=== PATIENT | male | born 1940 | race Caucasian/White ===

== ENCOUNTER 2017-10-09 12:16 | Day surgery (SDC) | payer MEDICARE ==
[~2017-10-09] VITALS: Ht 170.2 cm; Wt 92.2 kg
[~2017-10-09 12:16] MED LIST: AMLO10 PO; ASPI325 PO; ASPI325EC PO; CETI10 PO; CLOP75 PO; CYCL10 PO; FENO145 PO; FISH1000 PO; FLUT.05NI; FURO40 PO; GABA300 PO; HYDCHL25 PO; LISI20 PO; MELO7.5 PO; METF500 PO; METF500C PO; METF850 PO; METO50 PO; NEBI10 PO; NITR.4SL SL; NYSTRITC TOP; OLME20 PO; OMEP20ER PO; OMEPRAZOLE MAGN20 MG PO; PROACE100 PO; ROSU10TA PO; TAMS.4ER PO; TRAACE PO; VERA240ER PO
[2017-10-09] MEDS ORDERED: XARELTO20 MG (13:01)
[2017-10-09] MEDS ORDERED: XARELTO20 MG PO (13:02)
== END 2017-10-09 14:34 | disposition home or self-care (01) ==
LOC: ORSCSDS 12:16
PROVIDERS: Internal Medicine Gastroenterology
PROC: 0DBH8ZX Excision of Cecum, Via Natural or Artificial Opening Endoscopic, Diagnostic (ICD-10-PCS; principal; 2017-10-09 13:30)
PROC: 0DBK8ZX Excision of Ascending Colon, Via Natural or Artificial Opening Endoscopic, Diagnostic (ICD-10-PCS; principal; 2017-10-09 13:30)
PROC: 0W3P8ZZ Control Bleeding in Gastrointestinal Tract, Via Natural or Artificial Opening Endoscopic (ICD-10-PCS; principal; 2017-10-09 13:30)
DX: Z12.11 Encounter for screening for malignant neoplasm of colon (principal); D12.0 Benign neoplasm of cecum; D12.2 Benign neoplasm of ascending colon; Q27.33 Arteriovenous malformation of digestive system vessel; K57.30 Diverticulosis of large intestine without perforation or abscess without bleeding; K64.8 Other hemorrhoids; I25.10 Atherosclerotic heart disease of native coronary artery without angina pectoris; I10 Essential (primary) hypertension; G47.33 Obstructive sleep apnea (adult) (pediatric); K21.9 Gastro-esophageal reflux disease without esophagitis; E11.9 Type 2 diabetes mellitus without complications; Z79.899 Other long term (current) drug therapy; Z79.82 Long term (current) use of aspirin
CPT/HCPCS: 82947; 88305; J2250; J7120

== ENCOUNTER 2017-12-10 10:37 | Observation (INO) | payer MEDICARE ==
[~2017-12-10] VITALS: Ht 170.2 cm; Wt 91.5 kg
[~2017-12-10 10:37] MED LIST changes: +XARELTO20 MG; +XARELTO20 MG PO
[2017-12-10 12:02] LABS: BASOPHILS ABSOLUTE AUTO 0.05 K/mm3 (0.00-0.23); BASOPHILS PERCENT AUTO 1 % (0-2); EOSINOPHILS PERCENT AUTO 3 % (0-6); Hematocrit 38.8 % (37.0-53.0); Hemoglobin 12.7 g/dL (13.5-17.5); IMMATURE GRAN ABSOLUTE AUTO 0.06 K/mm3 (0.00-0.10); IMMATURE GRAN PERCENT AUTO 1 % (0-1); LYMPHOCYTES ABSOLUTE AUTO 2.09 K/mm3 (0.84-5.20); LYMPHOCYTES PERCENT AUTO 29 % (21-46); MONOCYTES ABSOLUTE AUTO 0.77 K/mm3 (0.16-1.47); MONOCYTES PERCENT AUTO 11 % (4-13); Mean Corpuscular HGB 27.5 pg (26.0-34.0); Mean Corpuscular HGB Conc 32.7 g/dL (31.5-36.5); Mean Corpuscular Volume 84 fL (80-100); Mean Platelet Volume 11.6 fL (9.1-12.4); NEUTROPHILS ABSOLUTE AUTO 4.13 K/mm3 (1.96-9.15); NEUTROPHILS PERCENT AUTO 57 % (41-73); Platelet Count 193 K/mm3 (150-400); RDW Coefficient Variation 15.1 % (11.7-14.2); RDW Standard Deviation 45.9 fL (35.1-46.3); Red Blood Cell Count 4.62 M/mm3 (4.30-5.90)
[2017-12-10 12:15] LABS: Alanine Aminotransfer (ALT/SGP 24 U/L (12-78); Albumin, Blood 3.6 g/dL (3.4-5.0); Albumin/Globulin Ratio 0.9 (0.8-1.8); Alk Phos 51 U/L (50-136); Anion Gap 11 mmol/L (6-16); Aspartate Aminotrans (AST/SGOT 12 U/L (12-37); Bilirubin, Total 0.6 mg/dL (0.1-1.0); Blood Urea Nitrogen 14 mg/dL (8-24); Bun/Creatinine Ratio 11.4 (12.0-20.0); CO2, Blood 23 mmol/L (21-32); Calcium, Blood 8.7 mg/dL (8.5-10.1); Chloride, Blood 106 mmol/L (98-108); Creatinine, Blood 1.23 mg/dL (0.60-1.20); Globulin, Blood 3.8 g/dL (2.2-4.0); Glomerular Filtration Rate >60 (60-); Glucose, Blood 161 mg/dL (70-99); Potassium, Blood 3.8 mmol/L (3.5-5.5); Sodium, Blood 140 mmol/L (136-145); Total Protein, Blood 7.4 g/dL (6.4-8.2); Troponin I <0.015 ng/mL (0.000-0.040)
[2017-12-13] MEDS ORDERED: NITR.4SL SL (15:19)
[2017-12-13] MEDS ORDERED: Micro-K10 MEQ PO (15:22)
[2017-12-13] MEDS ORDERED: METO50ER PO (15:32)
[2017-12-13] MEDS ORDERED: ASPI81CH PO (15:34)
[2017-12-13] MEDS ORDERED: AMLO5 PO (15:36)
== END 2017-12-13 16:40 | disposition home or self-care (01) ==
LOC: ER 10:37 → PCU 10:38 → MEDS 14:01 → ER 14:01 → PCU 14:01 → MEDS 14:55 → PCU 16:25 → MEDS 16:25 → PCU 16:25
PROVIDERS: Emergency Medicine
DX: R07.89 Other chest pain (principal); I48.2 Chronic atrial fibrillation; I25.10 Atherosclerotic heart disease of native coronary artery without angina pectoris; E78.5 Hyperlipidemia, unspecified; I12.9 Hypertensive chronic kidney disease with stage 1 through stage 4 chronic kidney disease, or unspecified chronic kidney disease; E11.22 Type 2 diabetes mellitus with diabetic chronic kidney disease; N18.9 Chronic kidney disease, unspecified; M19.90 Unspecified osteoarthritis, unspecified site; G47.33 Obstructive sleep apnea (adult) (pediatric); M51.36 Other intervertebral disc degeneration, lumbar region; R55 Syncope and collapse; Z79.01 Long term (current) use of anticoagulants; Z95.1 Presence of aortocoronary bypass graft; Z95.5 Presence of coronary angioplasty implant and graft; Z88.5 Allergy status to narcotic agent; Z79.82 Long term (current) use of aspirin; Z79.899 Other long term (current) drug therapy; Z99.89 Dependence on other enabling machines and devices
CPT/HCPCS: 36415; 78452; 80053; 84484; 85025; 93005; 93010; 93017; 99285; A9500; J0280; J1160; J2785; J7030

== ENCOUNTER → 2018-08-21 | Outpatient (CLI) | payer MEDICARE ==
[~2018-08-21] MED LIST changes: +AMLO5 PO; +ASPI81CH PO; +METO50ER PO; +Micro-K10 MEQ PO
== END | disposition home or self-care (01) ==
LOC: LAB EV 15:08 → LAB SHORT 15:08
DX: E11.40 Type 2 diabetes mellitus with diabetic neuropathy, unspecified (principal)
CPT/HCPCS: 82607; 82746

== ENCOUNTER 2019-04-10 07:08 | Emergency (ER) | payer MEDICARE ==
[~2019-04-10] VITALS: Ht 170.2 cm; Wt 86.2 kg
== END 2019-04-10 08:54 | disposition home or self-care (01) ==
LOC: ER 07:08
DX: S93.402A Sprain of unspecified ligament of left ankle, initial encounter (principal); E11.9 Type 2 diabetes mellitus without complications; I25.10 Atherosclerotic heart disease of native coronary artery without angina pectoris; I10 Essential (primary) hypertension; E78.5 Hyperlipidemia, unspecified; N40.0 Benign prostatic hyperplasia without lower urinary tract symptoms; G47.33 Obstructive sleep apnea (adult) (pediatric); Z88.5 Allergy status to narcotic agent; Z88.6 Allergy status to analgesic agent; Z79.82 Long term (current) use of aspirin; Z79.899 Other long term (current) drug therapy; Z87.891 Personal history of nicotine dependence; W10.1XXA Fall (on)(from) sidewalk curb, initial encounter
CPT/HCPCS: 73610; 96372; 99283-25; J1170

== ENCOUNTER 2019-05-21 18:39 | Emergency (ER) | payer MEDICARE ==
[~2019-05-21] VITALS: Ht 170.2 cm; Wt 86.2 kg
[2019-05-21] MEDS ORDERED: Norco 5-325 Ta1 EACH PO (21:03)
== END 2019-05-21 21:24 | disposition home or self-care (01) ==
LOC: ER 18:39
DX: S93.402A Sprain of unspecified ligament of left ankle, initial encounter (principal); E11.9 Type 2 diabetes mellitus without complications; I10 Essential (primary) hypertension; I25.10 Atherosclerotic heart disease of native coronary artery without angina pectoris; Z87.442 Personal history of urinary calculi; Z87.891 Personal history of nicotine dependence; Z88.5 Allergy status to narcotic agent; Z79.899 Other long term (current) drug therapy; Z79.01 Long term (current) use of anticoagulants; Z79.82 Long term (current) use of aspirin; W22.8XXA Striking against or struck by other objects, initial encounter
CPT/HCPCS: 29505; 73610; 99283-25; A9270-GY

== ENCOUNTER → 2019-07-22 | Outpatient (CLI) | payer MEDICARE ==
[~2019-07-22] MED LIST changes: +Norco 5-325 Ta1 EACH PO
[2019-07-22 12:17] LABS: BASOPHILS ABSOLUTE AUTO 0.04 K/mm3 (0.00-0.23); BASOPHILS PERCENT AUTO 1 % (0-2); EOSINOPHILS ABSOLUTE AUTO 0.29 K/mm3 (0.00-0.68); EOSINOPHILS PERCENT AUTO 5 % (0-6); Hematocrit 33.7 % (37.0-53.0); Hemoglobin 10.1 g/dL (13.5-17.5); IMMATURE GRAN ABSOLUTE AUTO 0.03 K/mm3 (0.00-0.10); IMMATURE GRAN PERCENT AUTO 1 % (0-1); LYMPHOCYTES ABSOLUTE AUTO 1.38 K/mm3 (0.84-5.20); LYMPHOCYTES PERCENT AUTO 25 % (21-46); MONOCYTES ABSOLUTE AUTO 0.54 K/mm3 (0.16-1.47); MONOCYTES PERCENT AUTO 10 % (4-13); Mean Corpuscular HGB 25.2 pg (26.0-34.0); Mean Corpuscular Volume 84 fL (80-100); Mean Platelet Volume 10.1 fL (9.1-12.4); NEUTROPHILS ABSOLUTE AUTO 3.29 K/mm3 (1.96-9.15); NEUTROPHILS PERCENT AUTO 59 % (41-73); Platelet Count 207 K/mm3 (150-400); RDW Coefficient Variation 21.3 % (11.7-14.2); RDW Standard Deviation 62.2 fL (35.1-46.3); Red Blood Cell Count 4.01 M/mm3 (4.30-5.90); White Blood Cell Count 5.57 K/mm3 (4.00-11.30)
[2019-07-22 12:21] LABS: Calcium, Blood 8.8 mg/dL (8.5-10.1); Creatinine, Blood 1.2 mg/dL (0.60-1.20); Potassium, Blood 4.3 mmol/L (3.5-5.5)
== END | disposition home or self-care (01) ==
LOC: LAB EV 12:12 → LAB SHORT 12:12
PROVIDERS: Family Medicine
DX: D50.9 Iron deficiency anemia, unspecified (principal)
CPT/HCPCS: 80048; 85025

== ENCOUNTER → 2019-08-27 | Outpatient (CLI) | payer MEDICARE ==
[2019-08-29 09:46] LABS: Stool Occult Bld Immuno 1 Positive (NEGATIVE); Stool Occult Bld Immuno 2 Positive (NEGATIVE)
== END | disposition home or self-care (01) ==
LOC: LAB EV 16:30
PROVIDERS: Internal Medicine Gastroenterology
DX: D50.9 Iron deficiency anemia, unspecified (principal)
CPT/HCPCS: 82274

== ENCOUNTER 2020-01-27 10:51 | Day surgery (SDC) | payer MEDICARE ==
[~2020-01-27] VITALS: Ht 170.2 cm; Wt 87.7 kg
[~2020-01-27 10:51] MED LIST changes: +Amlodipine Bes2.5 MG PO; +Aspir 8181 MG PO; +Benicar40 MG PO; +Crestor20 MG PO; +Flonase 0.05% N16 GM; +METO100ER PO; +NYSTRITC; +TRAMADOL-ACETAMINOPH PO; +ZYRTEC10 M1 PO
== END 2020-01-27 13:31 | disposition home or self-care (01) ==
LOC: ORSCSDS 10:51
PROVIDERS: Internal Medicine Gastroenterology
PROC: 0DB68ZX Excision of Stomach, Via Natural or Artificial Opening Endoscopic, Diagnostic (ICD-10-PCS; principal; 2020-01-27 12:45)
PROC: 0DB98ZX Excision of Duodenum, Via Natural or Artificial Opening Endoscopic, Diagnostic (ICD-10-PCS; principal; 2020-01-27 12:45)
DX: R19.5 Other fecal abnormalities (principal); D50.9 Iron deficiency anemia, unspecified; G47.33 Obstructive sleep apnea (adult) (pediatric); I48.91 Unspecified atrial fibrillation; I25.10 Atherosclerotic heart disease of native coronary artery without angina pectoris; I10 Essential (primary) hypertension; I25.2 Old myocardial infarction; G47.30 Sleep apnea, unspecified; E11.9 Type 2 diabetes mellitus without complications; E66.9 Obesity, unspecified; Z68.30 Body mass index [BMI] 30.0-30.9, adult; Z79.01 Long term (current) use of anticoagulants; Z87.891 Personal history of nicotine dependence; Z79.82 Long term (current) use of aspirin; Z79.899 Other long term (current) drug therapy
CPT/HCPCS: 82947; 88305; 88342; J2704; J7120

== ENCOUNTER → 2020-11-29 | Outpatient (CLI) | payer MEDICARE ==
[~2020-11-29] MED LIST changes: +AZIT500 PO; +CEFP200 PO; -Flonase 0.05% N16 GM; +NYSTATIN-TRIAMC15 GM TOP; -NYSTRITC
== END | disposition home or self-care (01) ==
LOC: PLD 07:56 → LAB SHORT 07:56
DX: L60.2 Onychogryphosis (principal); B35.1 Tinea unguium
CPT/HCPCS: 88305; 88312

== ENCOUNTER 2021-08-16 10:58 | Day surgery (SDC) | payer MEDICARE ==
[~2021-08-16] VITALS: Ht 170.2 cm; Wt 85.9 kg
[~2021-08-16 10:58] MED LIST changes: +ACET500 PO; +ALLO300 PO; +COLCHICINE0.6 MG PO; +FLUTICASONE PRO16 GM; +Flonase 0.05% N16 GM; +POTASSIUM CHLORIDE PO; +TRAM50 PO; +ZYRTEC10 M2 PO
--- NOTE | 2021-08-16 12:31 | NUR ---
Ambulatory in Day Surgery Surgical site prepped with 2% Chlorhexidine cloth wipe. History, Chart, Medications and Allergies reviewed before start of procedure.Lungs clear T/O to Auscultation.
--- NOTE | 2021-08-16 18:34 | NUR ---
PATIENT ARRIVED TO THE FLOOR FROM PACU AT THIS TIME. NO SIGNS OR SYMPTOMS ACUTE DISTRESS NOTED. CALL LIGHT AND WATER IN EASY REACH. ANSWERS QUESTIONS APPROPRIATELY. DRESSING TO RIGHT HIP CDI, POLAR PACK IN PLACE, SCD'S ARE ON AND WORKING. AT BEDSIDE.PATIENT ABLE TO MOVED LEGS AND FEET, UNABLE TO FEEL EITHER. WILL MONITOR.
[2021-08-17 06:35] LABS: BASOPHILS ABSOLUTE AUTO 0.02 K/mm3 (0.00-0.23); BASOPHILS PERCENT AUTO 0 % (0-2); EOSINOPHILS PERCENT AUTO 0 % (0-6); Hematocrit 35.8 % (37.0-53.0); Hemoglobin 11.9 g/dL (13.5-17.5); IMMATURE GRAN ABSOLUTE AUTO 0.06 K/mm3 (0.00-0.10); IMMATURE GRAN PERCENT AUTO 0 % (0-1); LYMPHOCYTES ABSOLUTE AUTO 0.55 K/mm3 (0.84-5.20); LYMPHOCYTES PERCENT AUTO 4 % (21-46); MONOCYTES ABSOLUTE AUTO 0.54 K/mm3 (0.16-1.47); MONOCYTES PERCENT AUTO 4 % (4-13); Mean Corpuscular HGB 32.5 pg (26.0-34.0); Mean Corpuscular HGB Conc 33.2 g/dL (31.5-36.5); Mean Corpuscular Volume 98 fL (80-100); Mean Platelet Volume 11.4 fL (9.1-12.4); NEUTROPHILS ABSOLUTE AUTO 13.34 K/mm3 (1.96-9.15); NEUTROPHILS PERCENT AUTO 92 % (41-73); Platelet Count 120 K/mm3 (150-400); RDW Coefficient Variation 15.7 % (11.7-14.2); RDW Standard Deviation 55.9 fL (35.1-46.3); Red Blood Cell Count 3.66 M/mm3 (4.30-5.90); White Blood Cell Count 14.51 K/mm3 (4.00-11.30)
--- NOTE | 2021-08-17 06:58 | NUR ---
SHIFT SUMMARY POD1 R FUNMILAYO, A/OX4, VSS, TOLERATING PO, AMBULATING c MINIMAL ASSISTANCE, PAIN WAS HIGH AT START OF SHIFT BUT WAS BETTER AFTER MIDNIGHT DOSE OF TORODOL AND A SHORT AMBULATION. MILD NAUSEA BUT NO VOMITING. NO ACUTE EVENTS THIS SHIFT, CALL LIGHT IN REACH, WILL CTM AND REPORT TO DAY RN.
[2021-08-17 07:26] LABS: Calcium, Blood 8.6 mg/dL (8.5-10.1); Creatinine, Blood 1.35 mg/dL (0.60-1.20); Magnesium, Blood 1.7 mg/dL (1.6-2.4); Potassium, Blood 4.5 mmol/L (3.5-5.5)
[2021-08-17] MEDS ORDERED: OXYC5 PO (09:59)
[2021-08-17] MEDS ORDERED: PROM25 PO (10:00)
[2021-08-17] MEDS ORDERED: SULTRIDS PO (10:00)
--- NOTE | 2021-08-17 18:39 | NUR ---
PATIENT WAS GOING TO GO HOME TODAY AT AROUND 1400 BUT PATIENT VOMITED 450 ML OF FLUID. GIVEN IV ZOFRAN, EFFECTIVE. DR MARTINEZ SAID TO KEEP PATIENT UNTIL AFTER HE EATS AT SUPPER THEN DC. PATIENT ASSISTED BACK TO BED, PATIENT BECAME SOMEWHAT DIZZY WITH TRANFER. BP SLIGHTLY LOW. PATIENT BEGAN HAVING MUSCLE SPASMS TO RIGHT HIP/LEG. NOTIFIED DR Palafox, NS BOLUS OF 500 ML GIVEN, VALIUM 5MG GIVEN, HEAT APPLIED. PATIENT UNABLE TO VOID, IN AND OUT CATH DONE WITH 500ML DRAINED-URINE DARK WERNER IN COLOR. AT ABOUT 1800 PATIENT BEGAN TO FEEL BETTER ENOUGH TO EAT. PATIENT TO STAY OVERNIGHT TONIGHT. DR Palafox WILL REASSESS IN AM. WILL MONITOR
--- NOTE | 2021-08-18 06:18 | NUR ---
SUMMARY PT DENIES SPASMS THIS AM.TOLERATING PO AND VOIDING.
--- NOTE | 2021-08-18 12:19 | NUR ---
SHIFT SUMMARY PT POD #2 FOR ELECTIVE R HIP REPLACEMENT. PAIN IS MINIMAL AND PT HAS HAD NO C/O NAUSEA THIS SHIFT. WORKED WITH PHYSICAL THERAPY AND CLEARED TO GO HOME. AQUACEL DRESSING CHANGED BY SURGEON TODAY AND REMAINS CDI. PT INSTRUCTED ON POST OP CARE AND VERBALIZED UNDERSTANDING. VSS. DC'D HOME WITH SON.
== END 2021-08-18 12:28 | disposition home or self-care (01) ==
LOC: ORSCMMR 10:58 → SURS 18:57 → ORSCMMR 08-18 12:28
PROVIDERS: Orthopaedic Surgery
PROC: 0SR90JA Replacement of Right Hip Joint with Synthetic Substitute, Uncemented, Open Approach (ICD-10-PCS; principal; 2021-08-16 13:30)
PROC: 8E0YXBZ Computer Assisted Procedure of Lower Extremity (ICD-10-PCS; principal; 2021-08-16 13:30)
DX: M16.11 Unilateral primary osteoarthritis, right hip (principal); I10 Essential (primary) hypertension; E78.5 Hyperlipidemia, unspecified; E11.9 Type 2 diabetes mellitus without complications; N18.9 Chronic kidney disease, unspecified; G47.33 Obstructive sleep apnea (adult) (pediatric); I25.2 Old myocardial infarction; Z79.899 Other long term (current) drug therapy; Z79.82 Long term (current) use of aspirin
CPT/HCPCS: 36415; 72170; 80048; 82947; 83735; 85025; 97110; 97116; 97162; 97166; 97530; 97535; A9270; C1713; C1776; J0171; J0690; J0735; J1100; J1170; J1815; J1885; J2250; J2405; J2704; J2765; J2795; J3010; J3370; J7030; J7120

== ENCOUNTER → 2021-08-29 | Outpatient (CLI) | payer MEDICARE ==
[~2021-08-29] MED LIST changes: +OXYC5 PO; +PROM25 PO; +SULTRIDS PO
== END | disposition home or self-care (01) ==
LOC: LAB 15:02 → LAB SHORT 15:02
DX: R10.9 Unspecified abdominal pain (principal)
CPT/HCPCS: 83690

== ENCOUNTER 2023-01-06 20:28 | Emergency (ER) | payer MEDICARE ==
[~2023-01-06] VITALS: Ht 167.6 cm; Wt 77.1 kg
[2023-01-06 21:06] LABS: BASOPHILS ABSOLUTE AUTO 0.05 K/mm3 (0.00-0.23); BASOPHILS PERCENT AUTO 1 % (0-2); EOSINOPHILS ABSOLUTE AUTO 0.28 K/mm3 (0.00-0.68); EOSINOPHILS PERCENT AUTO 4 % (0-6); Hematocrit 38.3 % (37.0-53.0); Hemoglobin 12.9 g/dL (13.5-17.5); IMMATURE GRAN ABSOLUTE AUTO 0.02 K/mm3 (0.00-0.10); IMMATURE GRAN PERCENT AUTO 0 % (0-1); LYMPHOCYTES ABSOLUTE AUTO 1.56 K/mm3 (0.84-5.20); LYMPHOCYTES PERCENT AUTO 21 % (21-46); MONOCYTES ABSOLUTE AUTO 0.68 K/mm3 (0.16-1.47); MONOCYTES PERCENT AUTO 9 % (4-13); Mean Corpuscular HGB 30.9 pg (26.0-34.0); Mean Corpuscular HGB Conc 33.7 g/dL (31.5-36.5); Mean Corpuscular Volume 92 fL (80-100); Mean Platelet Volume 11.6 fL (9.1-12.4); NEUTROPHILS ABSOLUTE AUTO 5.03 K/mm3 (1.96-9.15); NEUTROPHILS PERCENT AUTO 66 % (41-73); Platelet Count 139 K/mm3 (150-400); RDW Coefficient Variation 14.5 % (11.7-14.2); RDW Standard Deviation 49.2 fL (35.1-46.3); Red Blood Cell Count 4.18 M/mm3 (4.30-5.90); White Blood Cell Count 7.62 K/mm3 (4.00-11.30)
[2023-01-06 21:26] LABS: Albumin, Blood 3.6 g/dL (3.4-5.0); Albumin/Globulin Ratio 1.1 (0.8-1.8); Bilirubin, Total 0.7 mg/dL (0.1-1.0); Bun/Creatinine Ratio 12.9 (12.0-20.0); Calcium, Blood 8.8 mg/dL (8.5-10.1); Creatinine, Blood 1.32 mg/dL (0.60-1.20); Globulin, Blood 3.4 g/dL (2.2-4.0); Potassium, Blood 3.7 mmol/L (3.5-5.5)
[2023-01-06 22:55] VITALS: BP 141/74
== END 2023-01-06 23:56 | disposition home or self-care (01) ==
LOC: ER 20:28
PROVIDERS: Student in an Organized Health Care Education/Training Program
DX: S00.01XA Abrasion of scalp, initial encounter (principal); I48.91 Unspecified atrial fibrillation; E11.9 Type 2 diabetes mellitus without complications; I25.10 Atherosclerotic heart disease of native coronary artery without angina pectoris; I10 Essential (primary) hypertension; G47.33 Obstructive sleep apnea (adult) (pediatric); E78.5 Hyperlipidemia, unspecified; Z87.442 Personal history of urinary calculi; Z79.01 Long term (current) use of anticoagulants; Z79.82 Long term (current) use of aspirin; Z79.899 Other long term (current) drug therapy; Z87.891 Personal history of nicotine dependence; W01.198A Fall on same level from slipping, tripping and stumbling with subsequent striking against other object, initial encounter
CPT/HCPCS: 70450; 72125; 80053; 84484; 85025; 93005; 93010; 99284-25; A9270

== ENCOUNTER → 2025-01-07 | Outpatient (CLI) | payer MEDICARE ==
[2025-01-07 18:24] LABS: Creatinine, Urine Random 23.4 mg/dL (27.00-270.00)
[2025-01-07 18:27] LABS: Microalb/Creat Ratio UR, Rand 32.949 mg/g (0.000-30.000); Microalbumin, Random Urine 7.71 mg/L (0.000-20.000)
== END ==
LOC: LAB SHORT 15:24 → LAB 15:24
PROVIDERS: Internal Medicine
DX: E11.42 Type 2 diabetes mellitus with diabetic polyneuropathy (principal)
CPT/HCPCS: 82043; 82570

== ENCOUNTER 2025-05-05 12:00 | Emergency (ER) | payer MEDICARE ==
[~2025-05-05] VITALS: Ht 170.2 cm; Wt 87.1 kg
[2025-05-05 12:07] VITALS: BP 117/76
[2025-05-05 12:42] LABS: BASOPHILS ABSOLUTE AUTO 0.04 K/mm3 (0.00-0.23); BASOPHILS PERCENT AUTO 1 % (0-2); EOSINOPHILS ABSOLUTE AUTO 0.12 K/mm3 (0.00-0.68); EOSINOPHILS PERCENT AUTO 2 % (0-6); Hematocrit 43.1 % (37.0-53.0); Hemoglobin 13.8 g/dL (13.5-17.5); IMMATURE GRAN ABSOLUTE AUTO 0.06 K/mm3 (0.00-0.10); IMMATURE GRAN PERCENT AUTO 1 % (0-1); LYMPHOCYTES ABSOLUTE AUTO 1.38 K/mm3 (0.84-5.20); LYMPHOCYTES PERCENT AUTO 18 % (21-46); MONOCYTES ABSOLUTE AUTO 0.63 K/mm3 (0.16-1.47); MONOCYTES PERCENT AUTO 8 % (4-13); Mean Corpuscular HGB Conc 32.0 g/dL (31.5-36.5); Mean Corpuscular Volume 88 fL (80-100); NEUTROPHILS ABSOLUTE AUTO 5.31 K/mm3 (1.96-9.15); NEUTROPHILS PERCENT AUTO 70 % (41-73); NRBC ABSOLUTE 0.00 K/mm3 (0.00-0.02); NRBC Auto 0.0 /100 WBC (0.0-0.2); Platelet Count 128 K/mm3 (150-400); RDW Coefficient Variation 18.6 % (11.7-14.2); RDW Standard Deviation 59.7 fL (35.1-46.3)
[2025-05-05 13:15] LABS: Alanine Aminotransfer (ALT/SGP 27.0 U/L (12-78); Albumin, Blood 3.1 g/dL (3.4-5.0); Albumin/Globulin Ratio 0.9 (0.8-1.8); Anion Gap 7.0 mmol/L (3-11); Aspartate Aminotrans (AST/SGOT 32.0 U/L (12-37); Bilirubin, Total 0.8 mg/dL (0.1-1.0); Blood Urea Nitrogen 16.0 mg/dL (8-24); CO2, Blood 26.0 mmol/L (21-32); Calcium, Blood 8.1 mg/dL (8.5-10.1); Chloride, Blood 108.0 mmol/L (98-108); Creatinine, Blood 0.96 mg/dL (0.60-1.20); Globulin, Blood 3.4 g/dL (2.2-4.0); Glucose, Blood 171.0 mg/dL (70-99); Potassium, Blood 4.2 mmol/L (3.5-5.5); Sodium, Blood 137.0 mmol/L (136-145); Total Protein, Blood 6.5 g/dL (6.4-8.2)
[2025-05-05 13:20] LABS: Magnesium, Blood 1.7 mg/dL (1.6-2.4)
[2025-05-05] MEDS ORDERED: Toprol Xl25 MG PO (13:53)
== END 2025-05-05 14:10 | disposition home or self-care (01) ==
LOC: ER 12:00
PROVIDERS: Emergency Medicine
DX: I48.91 Unspecified atrial fibrillation (principal); R00.1 Bradycardia, unspecified; E11.9 Type 2 diabetes mellitus without complications; M19.90 Unspecified osteoarthritis, unspecified site; I10 Essential (primary) hypertension; E78.5 Hyperlipidemia, unspecified; G47.33 Obstructive sleep apnea (adult) (pediatric); Z87.891 Personal history of nicotine dependence; Z79.82 Long term (current) use of aspirin; Z79.51 Long term (current) use of inhaled steroids; Z79.899 Other long term (current) drug therapy
CPT/HCPCS: 71045; 80053; 83690; 83735; 84484; 85025; 93005; 93010; 99285-25

== ENCOUNTER 2025-07-09 18:58 | Emergency (ER) | payer MEDICARE ==
[~2025-07-09] VITALS: Ht 170.2 cm; Wt 83.9 kg
[~2025-07-09 18:58] MED LIST changes: +Toprol Xl25 MG PO
[2025-07-09 19:40] LABS: BASOPHILS ABSOLUTE AUTO 0.04 K/mm3 (0.00-0.23); BASOPHILS PERCENT AUTO 0 % (0-2); EOSINOPHILS ABSOLUTE AUTO 0.32 K/mm3 (0.00-0.68); EOSINOPHILS PERCENT AUTO 3 % (0-6); Hematocrit 41.3 % (37.0-53.0); Hemoglobin 13.0 g/dL (13.5-17.5); IMMATURE GRAN ABSOLUTE AUTO 0.04 K/mm3 (0.00-0.10); IMMATURE GRAN PERCENT AUTO 0 % (0-1); LYMPHOCYTES ABSOLUTE AUTO 1.12 K/mm3 (0.84-5.20); LYMPHOCYTES PERCENT AUTO 11 % (21-46); MONOCYTES ABSOLUTE AUTO 0.85 K/mm3 (0.16-1.47); MONOCYTES PERCENT AUTO 8 % (4-13); Mean Corpuscular HGB Conc 31.5 g/dL (31.5-36.5); Mean Corpuscular Volume 86 fL (80-100); NEUTROPHILS ABSOLUTE AUTO 7.80 K/mm3 (1.96-9.15); NEUTROPHILS PERCENT AUTO 77 % (41-73); NRBC ABSOLUTE 0.00 K/mm3 (0.00-0.02); NRBC Auto 0.0 /100 WBC (0.0-0.2); Platelet Count 193 K/mm3 (150-400); RDW Coefficient Variation 16.7 % (11.7-14.2); RDW Standard Deviation 52.6 fL (35.1-46.3)
[2025-07-09 20:00] LABS: Alanine Aminotransfer (ALT/SGP 23.0 U/L (12-78); Albumin, Blood 3.8 g/dL (3.4-5.0); Albumin/Globulin Ratio 1.1 (0.8-1.8); Anion Gap 9.0 mmol/L (3-11); Aspartate Aminotrans (AST/SGOT 32.0 U/L (12-37); Bilirubin, Total 1.0 mg/dL (0.1-1.0); Blood Urea Nitrogen 11.0 mg/dL (8-24); CO2, Blood 27.0 mmol/L (21-32); Calcium, Blood 8.7 mg/dL (8.5-10.1); Chloride, Blood 104.0 mmol/L (98-108); Creatinine, Blood 0.95 mg/dL (0.60-1.20); Globulin, Blood 3.6 g/dL (2.2-4.0); Glucose, Blood 138.0 mg/dL (70-99); Potassium, Blood 3.7 mmol/L (3.5-5.5); Sodium, Blood 136.0 mmol/L (136-145); Total Protein, Blood 7.4 g/dL (6.4-8.2)
[2025-07-10] MEDS ORDERED: Ketorolac Tromethamine 15mg Vial IV ONE (00:40)
[2025-07-10 01:19] LABS: Source, Urine Clean Catch
[2025-07-10 01:26] LABS: Bilirubin, Urine Neg (Neg); Glucose Qualitative, Urine 4+ (Neg); Ketones, Urine Neg (Neg); Leukocyte Esterase, Urine Neg (Neg); Protein, Urine 1+ (Neg); Specific Gravity, Urine 1.010 (1.003-1.022); Urobilinogen, Urine 1+ (Normal)
[2025-07-10 01:52] LABS: Color, Urine Yellow (P-Yellow)
[2025-07-10] MEDS ORDERED: AMOCLA875 PO (02:25)
[2025-07-10 02:49] VITALS: BP 132/77
== END 2025-07-10 02:50 | disposition home or self-care (01) ==
LOC: ER 18:58
PROVIDERS: Student in an Organized Health Care Education/Training Program
DX: K59.00 Constipation, unspecified (principal)
CPT/HCPCS: 71046; 74177; 80053; 83690; 84484; 85025; 93005; 93010; 96374; 99284-25; J1885; Q9967

== ENCOUNTER 2025-07-27 18:06 | Emergency (ER) | payer OTHER, MEDICARE ==
[~2025-07-27] VITALS: Ht 170.2 cm; Wt 83.9 kg
[~2025-07-27 18:06] MED LIST changes: +AMOCLA875 PO
[2025-07-27 20:00] VITALS: BP 154/79
== END 2025-07-27 20:08 | disposition home or self-care (01) ==
LOC: ER 18:06
DX: S73.101A Unspecified sprain of right hip, initial encounter (principal); E11.9 Type 2 diabetes mellitus without complications; I10 Essential (primary) hypertension; E78.5 Hyperlipidemia, unspecified; G47.33 Obstructive sleep apnea (adult) (pediatric); Z79.51 Long term (current) use of inhaled steroids; Z79.899 Other long term (current) drug therapy; Z79.82 Long term (current) use of aspirin; Z79.01 Long term (current) use of anticoagulants; Z87.891 Personal history of nicotine dependence; W01.0XXA Fall on same level from slipping, tripping and stumbling without subsequent striking against object, initial encounter
CPT/HCPCS: 70450; 72125; 73502; 90471; 90715; 99284-25; A9270

== ENCOUNTER 2025-08-02 16:53 | Emergency (ER) | payer MEDICARE ==
[~2025-08-02] VITALS: Ht 170.2 cm; Wt 83.9 kg
[2025-08-02] MEDS ORDERED: Morphine Sulfate 4 MG/1 ML Injection IM ONE (19:05)
[2025-08-02] MEDS ORDERED: Lidocaine 4% 1 Patch TOP ONE (21:00)
[2025-08-02] MEDS ORDERED: LIDO700A20 TOP (21:03)
[2025-08-02 21:30] VITALS: BP 110/81
== END 2025-08-02 21:55 | disposition home or self-care (01) ==
LOC: ER 16:53
DX: S30.0XXA Contusion of lower back and pelvis, initial encounter (principal); E11.9 Type 2 diabetes mellitus without complications; I10 Essential (primary) hypertension; E78.5 Hyperlipidemia, unspecified; M19.90 Unspecified osteoarthritis, unspecified site; G47.33 Obstructive sleep apnea (adult) (pediatric); W19.XXXA Unspecified fall, initial encounter; Z87.891 Personal history of nicotine dependence; Z79.51 Long term (current) use of inhaled steroids; Z79.82 Long term (current) use of aspirin; Z79.899 Other long term (current) drug therapy
CPT/HCPCS: 72192; 96374; 99283-25; A9270; J2270

== ENCOUNTER 2025-08-28 09:25 | Inpatient (IN) | payer MEDICARE ==
[~2025-08-28] VITALS: Ht 170.2 cm; Wt 86.2 kg
[~2025-08-28 09:25] MED LIST changes: +LIDO700A20 TOP
[2025-08-28 10:29] LABS: BASOPHILS ABSOLUTE AUTO 0.04 K/mm3 (0.00-0.23); BASOPHILS PERCENT AUTO 1 % (0-2); EOSINOPHILS ABSOLUTE AUTO 0.38 K/mm3 (0.00-0.68); EOSINOPHILS PERCENT AUTO 7 % (0-6); Hematocrit 34.3 % (37.0-53.0); Hemoglobin 10.5 g/dL (13.5-17.5); IMMATURE GRAN ABSOLUTE AUTO 0.02 K/mm3 (0.00-0.10); IMMATURE GRAN PERCENT AUTO 0 % (0-1); LYMPHOCYTES ABSOLUTE AUTO 1.07 K/mm3 (0.84-5.20); LYMPHOCYTES PERCENT AUTO 21 % (21-46); MONOCYTES ABSOLUTE AUTO 0.55 K/mm3 (0.16-1.47); MONOCYTES PERCENT AUTO 11 % (4-13); Mean Corpuscular HGB Conc 30.6 g/dL (31.5-36.5); Mean Corpuscular Volume 89 fL (80-100); NEUTROPHILS ABSOLUTE AUTO 3.08 K/mm3 (1.96-9.15); NEUTROPHILS PERCENT AUTO 60 % (41-73); NRBC ABSOLUTE 0.00 K/mm3 (0.00-0.02); NRBC Auto 0.0 /100 WBC (0.0-0.2); Platelet Count 198 K/mm3 (150-400); RDW Coefficient Variation 18.6 % (11.7-14.2); RDW Standard Deviation 60.2 fL (35.1-46.3)
[2025-08-28 10:44] LABS: Alanine Aminotransfer (ALT/SGP 16.0 U/L (12-78); Albumin, Blood 3.1 g/dL (3.4-5.0); Albumin/Globulin Ratio 0.9 (0.8-1.8); Anion Gap 10.0 mmol/L (3-11); Aspartate Aminotrans (AST/SGOT 15.0 U/L (12-37); Bilirubin, Total 0.9 mg/dL (0.1-1.0); Blood Urea Nitrogen 14.0 mg/dL (8-24); CO2, Blood 25.0 mmol/L (21-32); Calcium, Blood 8.6 mg/dL (8.5-10.1); Chloride, Blood 108.0 mmol/L (98-108); Creatinine, Blood 0.87 mg/dL (0.60-1.20); Globulin, Blood 3.6 g/dL (2.2-4.0); Glucose, Blood 133.0 mg/dL (70-99); Potassium, Blood 3.4 mmol/L (3.5-5.5); Sodium, Blood 140.0 mmol/L (136-145); Total Protein, Blood 6.7 g/dL (6.4-8.2)
[2025-08-28 11:43] LABS: Source, Urine Voided
[2025-08-28 11:45] LABS: Bilirubin, Urine Neg (Neg); Color, Urine Yellow (P-Yellow); Glucose Qualitative, Urine 4+ (Neg); Ketones, Urine Neg (Neg); Leukocyte Esterase, Urine Neg (Neg); Protein, Urine 1+ (Neg); Specific Gravity, Urine 1.015 (1.003-1.022); Urobilinogen, Urine NORM (Normal)
[2025-08-28] MEDS ORDERED: Ampicillin Sod/Sulbactam Sod 3 GM in NS 100 ML IV ONE (13:05)
[2025-08-28] MEDS ORDERED: MetroNIDAZOLE 500MG/NS 100 ml 100 ML IV ONE (13:05)
[2025-08-28] MEDS ORDERED: FLU VACC TS2025(65UP)/MF59C/PF 45 MCG/0.5 ML SYRINGE IM SCH (15:25)
[2025-08-28] MEDS ORDERED: Ampicillin Sod/Sulbactam Sod 3 GM in NS 100 ML IV SCH (15:38)
[2025-08-28] MEDS ORDERED: MetroNIDAZOLE 500MG/NS 100 ml 100 ML IV SCH (16:00)
[2025-08-28 16:39] VITALS: BP 150/77
[2025-08-28 16:48] VITALS: BP 126/64
[2025-08-28 16:51] VITALS: BP 126/64
[2025-08-28] MEDS ORDERED: NS 250 ML IV PRN (16:55)
--- NOTE | 2025-08-28 16:57 | NUR ---
PT ARRIVED TO THE UNIT AT APPROXIMATELY 1630. PT ALERT AND ORIENTED UPON ARRIVAL. PT PALE, SHORT OF BREATH AND REPORTS NECK PAIN UPON ARRIVAL. VSS. DR. KEMP NOTIFIED AND CAME TO SEE PATIENT. PT'S NECK PAIN IMPROVED BY THE TIME DR. KEMP ARRIVED AND PALOR HAS IMPROVED.
[2025-08-28] MEDS ORDERED: Vitamin B Comple1 EA PO (17:48)
[2025-08-28] MEDS ORDERED: VITAMIN D325 MC3 PO (17:51)
[2025-08-28] MEDS ORDERED: ALEVAZOL56.7 G1 TOP (17:54)
[2025-08-28] MEDS ORDERED: FARXIGA10 MG PO (17:55)
[2025-08-28] MEDS ORDERED: NITR.4SL SL (17:57)
[2025-08-28] MEDS ORDERED: Crestor40 MG PO (17:59)
--- NOTE | 2025-08-28 18:54 | NUR ---
SHIFT SUMMARY PT SITTING AT EOB, IN GOOD SPIRITS. TOLERATED CLEAR LIQUID DINNER. BEDSIDE REPORT GIVEN TO MANASA BLANC.
[2025-08-28 19:15] VITALS: BP 145/73
[2025-08-28] MEDS ORDERED: Lactobacil 2-S.Thermo-Bifido 1 1 Cap PO SCH (21:00)
[2025-08-28 22:08] VITALS: BP 146/67
[2025-08-29 04:58] LABS: BASOPHILS ABSOLUTE AUTO 0.03 K/mm3 (0.00-0.23); BASOPHILS PERCENT AUTO 1 % (0-2); EOSINOPHILS ABSOLUTE AUTO 0.41 K/mm3 (0.00-0.68); EOSINOPHILS PERCENT AUTO 7 % (0-6); Hematocrit 30.4 % (37.0-53.0); Hemoglobin 9.5 g/dL (13.5-17.5); IMMATURE GRAN ABSOLUTE AUTO 0.02 K/mm3 (0.00-0.10); IMMATURE GRAN PERCENT AUTO 0 % (0-1); LYMPHOCYTES ABSOLUTE AUTO 0.79 K/mm3 (0.84-5.20); LYMPHOCYTES PERCENT AUTO 14 % (21-46); MONOCYTES ABSOLUTE AUTO 0.60 K/mm3 (0.16-1.47); MONOCYTES PERCENT AUTO 10 % (4-13); Mean Corpuscular HGB Conc 31.3 g/dL (31.5-36.5); Mean Corpuscular Volume 87 fL (80-100); NEUTROPHILS ABSOLUTE AUTO 3.96 K/mm3 (1.96-9.15); NEUTROPHILS PERCENT AUTO 68 % (41-73); NRBC ABSOLUTE 0.00 K/mm3 (0.00-0.02); NRBC Auto 0.0 /100 WBC (0.0-0.2); Platelet Count 162 K/mm3 (150-400); RDW Coefficient Variation 18.5 % (11.7-14.2); RDW Standard Deviation 58.6 fL (35.1-46.3)
--- NOTE | 2025-08-29 04:58 | NUR ---
SHIFT SUMMARY PT HAS SLEPT ON AND OFF T/O THE NIGHT. REQUIRED TYLENOL ONCE FOR A HEADACHE. PT ALSO REPORTS GENERALIZED ACHES. HE HAS BEEN ABLE TO AMBULATE TO THE BATHROOM WITH A SBA, NO STOOLS NOTED T/O THE NIGHT. NO BLOOD NOTED PER RECTUM. PT VOIDING W/O DIFFICULTY. TOLLERATING CLD W/O N/V. TELE READS AFIB 75. OVERALL NO ACUTE EVENTS. THE PATIENT IS CURRENTLY SLEEPING, IN NO DISTRESS, CALL LIGHT IN REACH
[2025-08-29 05:26] LABS: Alanine Aminotransfer (ALT/SGP 13.0 U/L (12-78); Albumin, Blood 2.9 g/dL (3.4-5.0); Albumin/Globulin Ratio 0.9 (0.8-1.8); Anion Gap 6.0 mmol/L (3-11); Aspartate Aminotrans (AST/SGOT 12.0 U/L (12-37); Bilirubin, Total 0.9 mg/dL (0.1-1.0); Blood Urea Nitrogen 13.0 mg/dL (8-24); CO2, Blood 27.0 mmol/L (21-32); Calcium, Blood 8.5 mg/dL (8.5-10.1); Chloride, Blood 111.0 mmol/L (98-108); Creatinine, Blood 0.86 mg/dL (0.60-1.20); Globulin, Blood 3.1 g/dL (2.2-4.0); Glucose, Blood 101.0 mg/dL (70-99); Magnesium, Blood 1.3 mg/dL (1.6-2.4); Phosphorus, Blood 3.0 mg/dL (2.5-4.9); Potassium, Blood 3.4 mmol/L (3.5-5.5); Sodium, Blood 141.0 mmol/L (136-145); Total Protein, Blood 6.0 g/dL (6.4-8.2)
[2025-08-29 05:39] VITALS: BP 135/80
[2025-08-29 07:08] VITALS: BP 141/88
[2025-08-29] MEDS ORDERED: Mag Sulfate 1 GM/D5% 100ML 100 ML IV STA (08:50)
[2025-08-29 14:29] VITALS: BP 135/83
--- NOTE | 2025-08-29 18:00 | NUR ---
SHIFT SUMMARY PT DENIES PAIN. HE HAS HAD SEVERAL BOWEL MOVEMENTS, THE AMOUNT OF BLOOD APPEARS TO BE DECREASEING WITH EACH BM. PT DENIES PAIN. HE HAS BEEN ALERT/ORIENTED. HE CALLS APPROPRIATELY.
[2025-08-29 19:48] VITALS: BP 145/83
[2025-08-29 23:31] VITALS: BP 122/60
--- NOTE | 2025-08-30 05:10 | NUR ---
[employer]BILE [employer] SUPERVISOR SUMMARY NO ACUTE CHANGES THIS SHIFT. PT HAS NOT HAD ANY BM'S TONIGHT. INDEPENDENT WITH THE URINAL. MEDICATED FOR HEADACHE WITH TYLENOL PER OCT. PT HAS HAD NO FURTHER COMPLAINTS AND HAS SLEPT MOST OF THE NIGHT. VSS, GIO.
[2025-08-30 05:45] VITALS: BP 131/69
[2025-08-30 05:56] LABS: BASOPHILS ABSOLUTE AUTO 0.04 K/mm3 (0.00-0.23); BASOPHILS PERCENT AUTO 1 % (0-2); EOSINOPHILS ABSOLUTE AUTO 0.53 K/mm3 (0.00-0.68); EOSINOPHILS PERCENT AUTO 9 % (0-6); Hematocrit 31.3 % (37.0-53.0); Hemoglobin 9.6 g/dL (13.5-17.5); IMMATURE GRAN ABSOLUTE AUTO 0.02 K/mm3 (0.00-0.10); IMMATURE GRAN PERCENT AUTO 0 % (0-1); LYMPHOCYTES ABSOLUTE AUTO 0.61 K/mm3 (0.84-5.20); LYMPHOCYTES PERCENT AUTO 11 % (21-46); MONOCYTES ABSOLUTE AUTO 0.62 K/mm3 (0.16-1.47); MONOCYTES PERCENT AUTO 11 % (4-13); Mean Corpuscular HGB Conc 30.7 g/dL (31.5-36.5); Mean Corpuscular Volume 87 fL (80-100); NEUTROPHILS ABSOLUTE AUTO 3.93 K/mm3 (1.96-9.15); NEUTROPHILS PERCENT AUTO 68 % (41-73); NRBC ABSOLUTE 0.00 K/mm3 (0.00-0.02); NRBC Auto 0.0 /100 WBC (0.0-0.2); Platelet Count 170 K/mm3 (150-400); RDW Coefficient Variation 18.6 % (11.7-14.2); RDW Standard Deviation 59.2 fL (35.1-46.3)
[2025-08-30 06:20] LABS: Alanine Aminotransfer (ALT/SGP 11.0 U/L (12-78); Albumin, Blood 2.9 g/dL (3.4-5.0); Albumin/Globulin Ratio 0.9 (0.8-1.8); Anion Gap 8.0 mmol/L (3-11); Aspartate Aminotrans (AST/SGOT 9.0 U/L (12-37); Bilirubin, Total 0.9 mg/dL (0.1-1.0); Blood Urea Nitrogen 9.0 mg/dL (8-24); CO2, Blood 27.0 mmol/L (21-32); Calcium, Blood 8.3 mg/dL (8.5-10.1); Chloride, Blood 111.0 mmol/L (98-108); Creatinine, Blood 0.88 mg/dL (0.60-1.20); Globulin, Blood 3.1 g/dL (2.2-4.0); Glucose, Blood 94.0 mg/dL (70-99); Magnesium, Blood 1.7 mg/dL (1.6-2.4); Phosphorus, Blood 2.6 mg/dL (2.5-4.9); Potassium, Blood 3.5 mmol/L (3.5-5.5); Sodium, Blood 142.0 mmol/L (136-145); Total Protein, Blood 6.0 g/dL (6.4-8.2)
[2025-08-30 07:22] VITALS: BP 138/77
[2025-08-30 11:15] VITALS: BP 133/78
[2025-08-30] MEDS ORDERED: VISBIOME 112.51 EACH PO (13:13)
[2025-08-30] MEDS ORDERED: POTCHL20ER PO (13:13)
[2025-08-30] MEDS ORDERED: AMOCLA875 PO (13:15)
--- NOTE | 2025-08-30 14:40 | NUR ---
SUMMARY ASSUMED CARE OF PT @0700. VSS. AXO4. IN AFIB PER TELEMETRY - RATE CONTROLLED. UTILIZING WALKER WELL. TOLERATED FULL LIQUID BREAKFAST AND LUNCH WELL - NO NAUSEA PER REPORT. NOT STARTING BACK ON XARELTO PER DR ALANIS UNTIL PCP FOLLOWUP. PT DENIED ANY BM ON NOC SHIFT. HAD 2 BM'S THIS SHIFT - BROWN IN COLOR W/O RED/BLACK OLORATION NOTED. VOIDING WELL. PT WANTING TO GO HOME - DR ALANIS DEEMED ACCEPTABE TO DC. DC INSTRUCTIONS PROVIDED TO PT. IV PULLED OUT. PT DRESSED. WHEELED OUT TO VEHICLE @1440.
== END 2025-08-30 14:47 | disposition home or self-care (01) | DRG 378 ==
LOC: ER 09:25 → SURS 15:22
PROVIDERS: Emergency Medicine; ADMIT Family Medicine
PROC: 5A09357 Assistance with Respiratory Ventilation, Less than 24 Consecutive Hours, Continuous Positive Airway Pressure (ICD-10-PCS; principal; 2025-08-28)
DX: K57.33 Diverticulitis of large intestine without perforation or abscess with bleeding (principal); D62 Acute posthemorrhagic anemia; I48.19 Other persistent atrial fibrillation; I25.10 Atherosclerotic heart disease of native coronary artery without angina pectoris; E11.9 Type 2 diabetes mellitus without complications; I10 Essential (primary) hypertension; E78.5 Hyperlipidemia, unspecified; M19.90 Unspecified osteoarthritis, unspecified site; K59.09 Other constipation; G47.33 Obstructive sleep apnea (adult) (pediatric); N40.0 Benign prostatic hyperplasia without lower urinary tract symptoms; E87.6 Hypokalemia; E83.42 Hypomagnesemia; Z87.891 Personal history of nicotine dependence; Z79.01 Long term (current) use of anticoagulants; Z95.1 Presence of aortocoronary bypass graft; Z95.5 Presence of coronary angioplasty implant and graft; Z79.82 Long term (current) use of aspirin; Z79.899 Other long term (current) drug therapy; Z79.891 Long term (current) use of opiate analgesic
CPT/HCPCS: 36415; 74177; 80053; 83690; 83735; 84100; 85025; 93005; 93010; 94762; 96365-59; 96367; 99285-25; A9270; J0295; J3475; J7050; Q9967